=== PATIENT | female | born 1970 | race Caucasian/White ===

== ENCOUNTER → 2016-10-25 | Day surgery (SDC) | payer MEDICARE, OTHER ==
[~2016-10-25] MED LIST: ADVAIR 250-501 EACH IH; ALAVERT10 MG PO; ALBUTEROL17 GM INH; ALLERCLEAR10 MG PO; CIPRO250 MG PO; CLARITIN10 M3 PO; CYMBALTA PO; DILANTIN KAPSE100 MG PO; EFFEXOR XR150 MG PO; FLONASE ALLERG9.9 ML; HYDROCODON-ACE1 EAC4 PO; LORTAB 10-3251 EACH PO; MINIPRESS1 MG PO; MIRALAX17 GM PO; MUCINEX ALLERG180 MG PO; PREDNISONE10 MG/DOSE PO; PROAIR HFA8.5 GM; QUESTRAN POWDE378 GM PO; SOMA PO; TOPAMAX50 MG PO; TRILEPTAL300 MG PO; VIMPAT200 MG PO; VIMPAT50 MG PO; VIT B12; XANAX1 MG PO; ZYRTEC PO
--- NOTE | ~2016-10-25 | OR ---
Unit #: [id number] #: [id number] Patient: BELINDA REYES [id number] [address] [address] [id number] MR#: [id number] NAME: BELINDA REYES ROOM: Date of Procedure: 10/25/2016 Admission Date: 10/25/2016 Surgeon: Sunil Funes M.D. : 1970 Attending Physician: Sunil Funes M.D. Primary Care Physician: Bernardo Henao M.D. OPERATIVE REPORT PROCEDURE PERFORMED Colonoscopy to cecum. INDICATIONS FOR PROCEDURE The patient with history of adenomatous polyps in the past. MEDICATIONS Monitored anesthesia. POSTOPERATIVE FINDINGS Normal colonoscopy to cecum. Good prep. No polyps, masses, or colitis. PLAN Given her history, recommend a repeat colonoscopy in 5 years. DESCRIPTION OF PROCEDURE The patient was explained of the procedure, risks, and benefits along with the risks and benefits of anesthesia. She was brought to the endoscopy room. Propofol anesthesia was given. Rectal exam was done, which was normal. Colonoscope was lubricated, passed up the rectum, advanced under direct vision all the way to the cecum. Cecum was identified by ileocecal valve and appendiceal orifice. I then started to pull the scope out carefully looking. No polyps, masses, or colitis was seen. Mucosa was normal and healthy. I retroflexed in the rectum, small hemorrhoids seen. Scope was gently pulled out. She tolerated it well. No major complications were seen. Dictated by... Donovan Mariano/coco TD: 10/25/2016 21:36 JOB #: [id number] Unit #: [id number] #: [id number] Patient: BELINDA REYES OPERATIVE REPORT X Sunil Funes MD X PROCEDURE OPERATIVE NOTE
== END | disposition home or self-care (01) ==
LOC: COPS 08:00
DX: Z12.11 Encounter for screening for malignant neoplasm of colon (principal); K64.9 Unspecified hemorrhoids; J45.909 Unspecified asthma, uncomplicated; F32.9 Major depressive disorder, single episode, unspecified; F17.210 Nicotine dependence, cigarettes, uncomplicated; Z86.010 Personal history of colon polyps; Z87.442 Personal history of urinary calculi; Z88.8 Allergy status to other drugs, medicaments and biological substances; Z91.040 Latex allergy status; Z79.899 Other long term (current) drug therapy; Z90.49 Acquired absence of other specified parts of digestive tract; Z98.51 Tubal ligation status; Z98.890 Other specified postprocedural states
CPT/HCPCS: J2250